=== PATIENT | male | born 1945 | race Caucasian/White ===

== ENCOUNTER → 2016-07-04 | Outpatient (CLI) | payer BC, OTHER ==
--- NOTE | 2016-07-04 10:33 | DI ---
XR CXR 2VW PA/LAT,07/04/2016 9:54 AM: Clinical History: Cough Previous Exam: May 17, 2016 Findings: PA and lateral views of the chest are obtained, and demonstrate diffuse COPD. 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 Patient is status post sternotomy. There is a stable artificial mitral valve. There is stable cardiomegaly. There is posterior transpedicular fusion of the lower lumbar spine. A nonobstructive bowel gas pattern is seen. Impression: No acute disease.
== END ==
LOC: RAD 09:44
PROVIDERS: ATTEND Family Medicine
DX: R05 Cough (principal); Z77.090 Contact with and (suspected) exposure to asbestos; R13.12 Dysphagia, oropharyngeal phase; K21.9 Gastro-esophageal reflux disease without esophagitis; K44.9 Diaphragmatic hernia without obstruction or gangrene; I51.7 Cardiomegaly
CPT/HCPCS: 71020; 74240

== ENCOUNTER → 2016-07-06 | Outpatient (CLI) | payer BC, OTHER ==
--- NOTE | 2016-07-06 10:53 | DI ---
XR UPPER GI SERIES W/O AIR,07/06/2016 9:18 AM: Clinical History: Oral pharyngeal dysphasia. Previous Exam: None at this facility. Findings: Multiple views of an upper gastrointestinal series are obtained after administration of crystals. The barium was administered. There is normal course, caliber and insertion of the esophagus. There was g ood distention of the esophagus throughout. There was an impression on the esophagus by the posterior margin of the heart. Postsurgical changes are seen consistent with sternotomy and mitral valve replacement. The stomach demonstrates normal size, shape and distensibility. There are postsurgical changes of the spine. There is a small hiatal hernia. Images were also obtained in the prone position with swallowing demonstrating good contractions which were fairly affective and coordinated. There was some reflux noted throughout. Images were obtained after administration of a 13 mm barium pill, and demonstrate temporary stoppage of the patella in the mid esophagus at the contour of the heart. This remained in the mid esophagus f or less than 20 seconds and then passed to the gastroesophageal junction. This pill stayed at the gas troesophageal junction until the patient was administered approximately 4 ounces of water. Impression: 1. Small hiatal hernia. 2. Temporary stoppage of a barium pill at the mid esophagus on the contour of the heart which passed spontaneously in less than 20 seconds. This was the feeling that the patient describes. 3. Small amount of gastroesophageal reflux seen during the exam. 4. No evidence of mass nor stricture.
== END ==
LOC: RAD 08:49
PROVIDERS: ATTEND Family Medicine
DX: R13.12 Dysphagia, oropharyngeal phase (principal); K21.9 Gastro-esophageal reflux disease without esophagitis; K44.9 Diaphragmatic hernia without obstruction or gangrene
CPT/HCPCS: 74240

== ENCOUNTER 2016-08-20 06:30 | Day surgery (SDC) | payer BC, OTHER ==
[~2016-08-20 06:30] MED LIST: LIDOCAINE 2% VISCOUS(20 MG/1 ML) - 15 ML UD CUP PO ONE; LIDOCAINE HCL/PF 2% (20 MG/ML) - 5 ML SYRINGE ONE; LIDOCAINE W/ SODIUM BICARB 0.5 ML SYR ONE; Lactated Ringers 1,000 ML PRIMARY IV ONE; MIDAZOLAM 5 MG/1 ML ONE; fentaNYL Inj 100 MCG/2 ML VIAL ONE
--- NOTE | 2016-08-20 07:00 | MINORPROC ---
Outpatient History & Physical Chief Complaint: Patient feels food stick in the midportion esophagus Present Illness: Patient has developed dysphagia History: General: WNL, HEENT: WNL, Respiratory: WNL, Cardiovascular: WNL, Gastrointestinal: WNL Physical Exam: Head/Neck: WNL, Chest/Lungs: WNL, Heart: WNL Home Medications: Home Medications Medication Instructions Recorded Confirmed Type Aspirin 325 mg PO DAILY 03/15/11 08/20/16 History Ferrous Fumarate [Iron] 55 mg PO DAILY 03/15/11 08/20/16 History Folic Acid 1 tab PO BID tab 03/15/11 08/20/16 History Multivitamins W-Minerals/Lut 1 each PO DAILY 03/15/11 08/20/16 History [Centrum Silver Tablet] Calcium Carbonate/Vitamin D3 3 tab PO QD 02/14/12 08/20/16 History [Caltrate 600 W-D Tablet] Nitroglycerin [Nitrostat] 0.4 mg SL .Q5MIN TIMES 3 PRN 02/14/12 08/20/16 History Glucosamine/Chondroitin Sulf A 1 each PO BID 09/16/13 08/20/16 History [Glucosamine Chondroitin Cap] Vitamin B Complex [B Complex] 1 each PO QD tab 04/07/14 08/20/16 History Saw [place] Xt/Phytosterol #2 3 each PO QD cap 06/17/14 08/20/16 History [Prostate Sr Softgel] Clobetasol Propionate/Emoll 1 applic TP TID #45 gm 03/16/15 08/20/16 Clinic [Clobetasol Emollient 0.05% Crm] Dapsone 25 mg ORAL BID #270 tab 09/28/15 08/20/16 Clinic Celecoxib [Celebrex] 1 cap PO BID #60 cap 04/09/16 08/20/16 Clinic Sulfasalazine [Azulfidine] 2 tab PO Q6HR #240 tablet 04/09/16 08/20/16 Clinic Tramadol HCl 2 tab PO Q4-6H #90 tab 05/24/16 08/20/16 Clinic Levothyroxine Sodium [Synthroid] 1 tab ORAL QD #90 tab 05/28/16 08/20/16 Clinic Ramipril [Altace] 1 cap PO QD #90 cap 05/28/16 08/20/16 Clinic Tamsulosin HCl [Flomax] 1 cap PO QD #90 cap 05/28/16 08/20/16 Clinic Allergies/Adverse Reactions: Allergies Allergy/AdvReac Type Severity Reaction Status Date / Time gluten Allergy Intermediate RASH Verified 05/17/16 10:30 Impression / Plan: Would recommend the patient have an EGD. The risk and potential complications of the procedure were discussed with the patient.. They understood this. Also discussed alternatives diagnostic and treatment options. He also needs esophageal dilation Will get the EGD set up at the first available date. Anesthesia Plans: Sedation ASA Class: Class 2 : Mild Systemic Disease
--- NOTE | 2016-08-20 07:17 | GEN.OPNOTE ---
EGD Operative Note Surgery Date: 08/20/16 Preoperative Diagnosis: Dysphagia Postoperative Diagnosis: Gastritis. Dysphagia Procedure: Esophagogastroduodenoscopy with biopsies and dilation to 18 mm Surgeon: Dawson Batres MD Anesthesia Provider: Maxi Villatoro CRNA Anesthesia Type: MAC Indications: Patient feels food stick in the midportion of esophagus Findings: Esophagus: Lives video EGD scope inserted in the posterior pharynx. Patient's vocal cords a little bit closed but otherwise no pathology. Scope was advanced in esophagus. Esophagus was tortuous but otherwise no true pathology GE Junction : GE junction approximately 36 cm from incisors Fundus : Scope retroflexed on itself revealing the fundus. Patient had no abnormal pathology Body : Patient had hemorrhagic gastritis seen within the body of the stomach abscesses taken Prepyloric : Prepyloric area was free from disease Small Intestine : First second third portion of the duodenum within normal limits A guidewire was then placed through the endoscopy scope endoscopy scope removed. Patient was progressively dilated from 15-18 mm with bougie dilators A lubricated flexible upper endoscope was inserted and passed through the esophagus and stomach into the duodenum.
[2016-08-20 07:42] VITALS: TEMP 97
[2016-08-20 08:56] VITALS: RESP 14
== END 2016-08-20 08:34 | disposition home or self-care (01) ==
LOC: SDSC 06:30
PROVIDERS: ATTEND Surgery
DX: K29.70 Gastritis, unspecified, without bleeding (principal); R13.10 Dysphagia, unspecified
CPT/HCPCS: 43239; 43248; J2704; J3010; 88305; 88312; J2001; J2250; J7120